=== PATIENT | male | born 2000 | race African-American/Black ===

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

== ENCOUNTER 2023-10-15 00:05 | Emergency (ER) | payer SELFPAY ==
--- OUTSIDE RECORDS SUMMARY | 2023-10-15 00:09 | XMS REPORT | Continuity of Care Document ---
Author Name Unknown Address [address] [facility] [address] th[address] Address [address] [facility] [address] [place] [address] Care Team Providers Care Coil Connector Repairer Name Role Phone Unavailable Unavailable Unavailable Encounters Start Date/Time End Date/Time Encounter Type Admission Type Attending Clinicians Care Facility Care Department Encounter ID Source 2022-11-21 10:03:50 2022-11-21 10:03:50 Outpatient [facility] [id number] Jeffery Osorio 2022-04-24 11:02:32 2022-04-24 11:02:32 Outpatient [facility] [id number] Jeffery Osorio
--- NOTE | 2023-10-15 00:32 | EDPHYS ---
Physician Documentation [facility] Name: Arnol Anders Age: 23 yrs Sex: Male : 2000 Arrival Date: 10/15/2023 Time: 00:05 Bed 19 Private MD: ED Physician Rc Little HPI: 10/14 00:27 This 23 yrs old Black Male presents to ER via Ambulatory with complaints of anxiety. rn 00:27 Patient reports under a lot of stress lately, feeling very anxious at this moment. rn Patient states was smoking a dab pen (vape pen), felt anxious, tearful, had an erection that would not go away, then felt like he should not go to sleep because he might . Denies any cardiac problems. No family history of early cardiac problems. Feels much better now.. Onset: The symptoms/episode began/occurred just prior to arrival. Severity of symptoms: At their worst the symptoms were moderate in the emergency department the symptoms are unchanged. The patient has not experienced similar symptoms in the past. Historical: - Allergies: 00:13 No Known Allergies; rv - PMHx: 00:13 Asthma; rv - PSHx: 00:13 None; rv - Immunization history:: Adult Immunizations up to date. - Social history:: Smoking status: unknown. - Family history:: not pertinent. - Hospitalizations: : No recent hospitalization is reported. ROS: 00:27 Constitutional: Negative for fever, chills, and weight loss, Eyes: Negative for injury, rn pain, redness, and discharge, Neck: Negative for injury, pain, and swelling, Cardiovascular: Negative for chest pain, palpitations, and edema, Respiratory: Negative for shortness of breath, cough, wheezing, and pleuritic chest pain, Abdomen/GI: Negative for abdominal pain, nausea, vomiting, diarrhea, and constipation, Back: Negative for injury and pain, MS/Extremity: Negative for injury and deformity, Skin: Negative for injury, rash, and discoloration, Neuro: Negative for headache, weakness, numbness, tingling, and seizure, Exam: 00:27 Constitutional: This is a well developed, well nourished patient who is awake, alert, rn tearful and crying, hyperventilating ambulatory to room without difficulty or assistance Head/Face: Normocephalic, atraumatic. Cardiovascular: Regular rate and rhythm. No pulse deficits. Respiratory: Hyperventilating, clear bilateral breath sounds Abdomen/GI: Soft, non-tender Skin: Warm, dry with normal turgor. Normal color with no rashes, no lesions, and no evidence of cellulitis. MS/ Extremity: Pulses equal, no cyanosis. Neurovascular intact. Full, normal range of motion. Equal circumference. Neuro: Awake and alert, GCS 15, oriented to person, place, time, and situation. Cranial nerves II-XII grossly intact. Motor strength 5/5 in all extremities. Sensory grossly intact. Cerebellar exam normal. Normal gait. Vital Signs: 00:11 BP 142 / 68; Pulse 69; Resp 17; Temp 98; Pulse Ox 99% on R/A; rv MDM: 00:08 Patient medically screened. rn 00:30 Differential Diagnosis Anxiety, hyperventilation, drug reaction. Data reviewed: vital rn signs, nurses notes. Refusal of service: The patient/guardian displays adequate decision making capability and despite a detailed discussion of alternatives, benefits, risks, and consequences refuses: CT Scan, all lab tests, Medications. ED course: After long discussion, patient states feels much better, stable vital signs, states does not have insurance and does not want any testing done now that he feels much better. Understands risks of leaving without further evaluation, states will return if symptoms worsen.. Administered Medications: No medications were administered Disposition Summary: 10/15/23 00:32 Discharge Ordered Notes: Location: Home rn Problem: new rn Symptoms: have improved rn Condition: Stable rn Diagnosis - Anxiety disorder, unspecified rn - Hyperventilation rn Followup: rn - With: Private Physician - When: As needed - Reason: Recheck today's complaints, Re-evaluation by your physician Discharge Instructions: - Discharge Summary Sheet rn - Hyperventilation rn - Generalized Anxiety Disorder, Adult rn - Managing Anxiety, Adult rn Forms: - Medication Reconciliation Form rn - Thank You Letter rn - Antibiotic senior insight manager international - Prescription Opioid Use rn - Patient Portal Instructions rn - Leadership Thank You Letter rn Signatures: Rc Little MD MD rn Vicente, Ronaldo, RN RN rv
--- NOTE | 2023-10-15 00:32 | ER ---
Nurse's Notes [facility] Name: Arnol Anders Age: 23 yrs Sex: Male : 2000 Arrival Date: 10/15/2023 Time: 00:05 Bed 19 Private MD: Diagnosis: Anxiety disorder, unspecified;Hyperventilation Presentation: 10/14 00:11 Chief complaint: Patient states: SUDDEN ONSET OF PAIN, NUMBNESS AND TINGLING SENSATION rv AT LEFT EXTREMITY. Coronavirus screen: At this time, the client does not indicate any symptoms associated with coronavirus-19. Ebola Screen: No symptoms or risks identified at this time. Initial Sepsis Screen: Does the patient meet any 2 criteria? No. Patient's initial sepsis screen is negative. Does the patient have a suspected source of infection? No. Patient's initial sepsis screen is negative. Risk Assessment: Do you want to hurt yourself or someone else? Patient reports no desire to harm self or others. Onset of symptoms was October 15, 2023. 00:11 Method Of Arrival: Ambulatory rv 00:11 Acuity: LARRY 4 rv Triage Assessment: 00:13 General: Appears in no apparent distress. Behavior is anxious, crying. Pain:. Neuro: rv Level of Consciousness is awake, alert, obeys commands, Oriented to person, place, time, situation. Cardiovascular: Capillary refill < 3 seconds Patient's skin is warm and dry. Respiratory: Airway is patent Respiratory effort is even, unlabored, Breath sounds are clear bilaterally. GI: No signs and/or symptoms were reported involving the gastrointestinal system. : No signs and/or symptoms were reported regarding the genitourinary system. Derm: Skin is intact. Historical: - Allergies: 00:13 No Known Allergies; rv - PMHx: 00:13 Asthma; rv - PSHx: 00:13 None; rv - Immunization history:: Adult Immunizations up to date. - Social history:: Smoking status: unknown. - Family history:: not pertinent. - Hospitalizations: : No recent hospitalization is reported. Screenin:15 [facility] ED Fall Risk Assessment (Adult) History of falling in the last 3 months, rv including since admission No falls in past 3 months (0 pts) Score/Fall Risk Level 0 - 2 = Low Risk Oriented to surroundings, Maintained a safe environment, Educated pt \T\ family on fall prevention, incl call for assistance when getting out of bed, Assessed \T\ reinforced patient's understanding of fall precautions. Abuse screen: Denies threats or abuse. Denies injuries from another. Nutritional screening: No deficits noted. Tuberculosis screening: No symptoms or risk factors identified. Vital Signs: 00:11 BP 142 / 68; Pulse 69; Resp 17; Temp 98; Pulse Ox 99% on R/A; rv ED Course: 00:07 Patient arrived in ED. rn 00:07 Rc Little MD is Attending Physician. rn 00:13 Triage completed. rv 00:13 Arm band placed on right wrist. rv 00:15 Patient has correct armband on for positive identification. rv 00:15 No provider procedures requiring assistance completed. rv 00:38 Patient did not have IV access during this emergency room visit. rv Administered Medications: No medications were administered Medication: 00:15 VIS not applicable for this client. rv Outcome: 00:32 Discharge ordered by MD. rn 00:37 Discharged to home ambulatory, with friend, rv 00:37 Condition: good 00:37 Discharge instructions given to patient, Instructed on discharge instructions, follow up and referral plans. Demonstrated understanding of instructions, follow-up care, 00:38 Patient left the ED. rv Signatures: Rc Little MD MD rn Vicente, Ronaldo, RN RN rv
[2023-10-15 07:12] VITALS: BP 142/68; TEMP 98; O2SAT 99
== END 2023-10-15 00:38 | disposition home or self-care (01) ==
LOC: ER 00:05
DX: R06.4 Hyperventilation (principal)
CPT/HCPCS: 99282